=== PATIENT | female | born 1995 | race Caucasian/White ===

== ENCOUNTER 2018-10-27 08:26 | Emergency (ER) | payer SELFPAY ==
[~2018-10-27] VITALS: Ht 154.9 cm; Wt 68.5 kg
[~2018-10-27 08:26] MED LIST: AMOX500C25; VIC PO; [UNRECOGNIZED DRUG - CODE]
[2018-10-27 08:37] VITALS: BP 135/81
--- NOTE | 2018-10-27 08:40 | NUR ---
23 Y/O F W/ c/o of all over severe body pain x 2 days. pt reports hx of fibromyalgia. has not seen neurologist. taking over the counter medications at home for pain with no relief. pain 06/07. PT AMBULATORY WITH STEADY GAIT. +CMS. CAP REFILL <3. hx: fibromyalgia rx: OTC
--- NOTE | 2018-10-27 08:49 | NUR ---
PT PROVIDED URINE AT THIS TIME.
--- NOTE | 2018-10-27 10:30 | NUR ---
PT RESTING IN BED COMFORTABLY. NO S/S OF DISTRESS NOTED.
[2018-10-27] MEDS ORDERED: MORPHINE SULFATE 4 MG/ML SYR IM ONE (10:35)
[2018-10-27 11:18] VITALS: BP 125/72
== END 2018-10-27 11:19 | disposition home or self-care (01) ==
LOC: MED 08:26
DX: O26.891 Other specified pregnancy related conditions, first trimester (principal); M79.7 Fibromyalgia; Z3A.01 Less than 8 weeks gestation of pregnancy; Z88.0 Allergy status to penicillin; Z88.6 Allergy status to analgesic agent; Z79.2 Long term (current) use of antibiotics
CPT/HCPCS: 81002; 81025; 87804; 96372; 99283; J2270; 36415

== ENCOUNTER 2018-11-11 11:59 | Emergency (ER) | payer MEDICAID ==
[~2018-11-11] VITALS: Ht 154.9 cm; Wt 68.0 kg
[2018-11-11 12:03] VITALS: BP 140/97
--- NOTE | 2018-11-11 12:08 | NUR ---
PATIENT AMBULATED TO ER BED 4.
--- NOTE | 2018-11-11 12:15 | NUR ---
PT IS A 23 Y/O FEMALE WHO PRESENTS TO THE ED C/O VAGINAL BLEEDING. PT STATES THAT IT HAS BEEN GOING ON X1 WEEK, REPORTS BLEEDING WITH CLOTS. PT DOES NOT RECALL LMP AND IS UNSURE OF HOW MANY WEEKS , [id number]. PT REPORTS 10/10 ACHING VAGINAL PAIN. PT DENIES CP, SOB, REPORTS NAUSEA DENIES VOMITING/DIARRHEA. PT AWAKE AND ALERT, RR EVEN/UNLABORED. PT REPOSITIONED FOR COMFORT, BED IN LOWEST POSITION. ER MD DR. EGAN NOTIFIED. WILL CONTINUE TO MONITOR. PMH: FIBROMYALGIA RX: AMOXICILLIN, TRAMADOL
--- NOTE | 2018-11-11 13:10 | NUR ---
LAB AT BEDSIDE FOR INTERVENTION.
--- NOTE | 2018-11-11 13:15 | NUR ---
US AT BEDSIDE FOR INTERVENTION.
[2018-11-11 13:21] LABS: BASOPHILS % (AUTO) 0.1 % (0.0-2.0); EOSINOPHILS % (AUTO) 0.4 % (0.0-4.0); HEMATOCRIT 37.1 % (36-48); HEMOGLOBIN 12.5 g/dL (12.0-16.0); LYMPHOCYTES # (AUTO) 0.9 K/uL (2.5-16.5); LYMPHOCYTES % (AUTO) 17.5 % (20.5-51.1); MEAN CORPUSCULAR HEMOGLOBIN 31 pg (27-31); MEAN CORPUSCULAR HGB CONC 34 g/dL (33-37); MEAN CORPUSCULAR VOLUME 93.4 fL (80-94); MONOCYTES # (AUTO) 0.4 K/uL (0.8-1.0); MONOCYTES % (AUTO) 6.7 % (1.7-9.3); NEUTROPHILS # (AUTO) 4.1 K/uL (1.8-7.7); NEUTROPHILS % (AUTO) 75.3 % (42.2-75.2); PLATELET COUNT (AUTO) 230 K/uL (140-450); RED BLOOD CELL COUNT(AUTO) 3.98 MIL/uL (4.20-5.40); RED CELL DISTRIBUTION WIDTH 13.2 % (11.6-13.7); WHITE BLOOD COUNT (AUTO) 5.4 K/uL (4.8-10.8)
[2018-11-11 13:27] LABS: APPEARANCE,URINE CLEAR (CLEAR); BILIRUBIN,URINE NEGATIVE (NEGATIVE); BLOOD, URINE NEGATIVE (NEGATIVE); COLOR,URINE YELLOW (YELLOW); LEUKOCYTE ESTERASE ,URINE NEGATIVE (NEGATIVE); NITRITE, URINE NEGATIVE (NEGATIVE); UGLUCOSE NEGATIVE (NEGATIVE)
[2018-11-11 14:05] VITALS: BP 137/85
--- NOTE | 2018-11-11 14:05 | NUR ---
Patient discharged with v/s stable. Written and verbal after care instructions given and explained. Patient verbalized understanding. Ambulatory with steady gait. All questions addressed prior to discharge. Advised to follow up with PMD.
[2018-11-11 14:10] LABS: ANION GAP 14.9 (8-16); CARBON DIOXIDE 23.3 mmol/L (21-32); CREATININE 0.6 mg/dL (0.6-1.3); POTASSIUM 4.2 mmol/L (3.5-5.1)
== END 2018-11-11 14:05 | disposition home or self-care (01) ==
LOC: MED 11:59
DX: O20.0 Threatened abortion (principal); Z3A.10 10 weeks gestation of pregnancy; Z88.1 Allergy status to other antibiotic agents; Z88.5 Allergy status to narcotic agent; Z79.899 Other long term (current) drug therapy
CPT/HCPCS: 36415; 76801; 80048; 81003; 81025; 84702; 85025; 86900; 86901; 99284; Q0092

== ENCOUNTER 2018-11-15 16:32 | Emergency (ER) | payer MEDICAID ==
[~2018-11-15] VITALS: Ht 154.9 cm; Wt 69.9 kg
[2018-11-15 16:35] VITALS: BP 124/90
--- NOTE | 2018-11-15 17:59 | NUR ---
Reji trammell in [facility] - 11/15/18 at 1800 by [facility] PT AMBULATED TO BED 02.
--- NOTE | 2018-11-15 18:00 | NUR ---
PT AMBULATED TO BED 11.
--- NOTE | 2018-11-15 18:18 | NUR ---
THIS 9 WEEKS 6 DAYS WOMAN PRESENTED TO THE ED WITH THE CHIEF C/O BLEEDINGFOR TWO WEEKS. PT STATES SHE HAS SMALL BLOOD CLOT ON BLEEDING. PER PT SHE WAS HERE LAST TUESDAY FOR SAME REASON. PT WAS TOLD SHE IS HAVING MISCARRIAGE. PER PT, THIS IS HER 4TH MISCARRIAGE. NOT TAKING ANY MEDICINE CURRENTLY. STATES PAIN OF 9/10. DENIES ANY N/V/D AT THIS TIME. VSS.
--- NOTE | 2018-11-15 19:13 | NUR ---
REPORT GIVEN TO DEPUTY [place] RN.
--- NOTE | 2018-11-15 19:14 | NUR ---
RECIVED REPORT FROM JOE DOMINGUEZ.
[2018-11-15] MEDS ORDERED: KETOROLAC 30 MG/ML VIAL IVP ONE (19:35)
[2018-11-15] MEDS ORDERED: NACL 0.9% 1,000 ML IV ONE (19:35)
[2018-11-15] MEDS ORDERED: ONDANSETRON 4 MG/2 ML VIAL IVP ONE (19:55)
[2018-11-15 20:26] LABS: BASOPHILS % (AUTO) 0.3 % (0.0-2.0); EOSINOPHILS % (AUTO) 0.1 % (0.0-4.0); HEMOGLOBIN 14.3 g/dL (12.0-16.0); LYMPHOCYTES # (AUTO) 1.1 K/uL (2.5-16.5); LYMPHOCYTES % (AUTO) 10.1 % (20.5-51.1); MEAN CORPUSCULAR HEMOGLOBIN 32 pg (27-31); MEAN CORPUSCULAR HGB CONC 34 g/dL (33-37); MONOCYTES # (AUTO) 0.5 K/uL (0.8-1.0); MONOCYTES % (AUTO) 4.6 % (1.7-9.3); NEUTROPHILS # (AUTO) 9.5 K/uL (1.8-7.7); NEUTROPHILS % (AUTO) 84.9 % (42.2-75.2); PLATELET COUNT (AUTO) 295 K/uL (140-450); RED BLOOD CELL COUNT(AUTO) 4.52 MIL/uL (4.20-5.40); RED CELL DISTRIBUTION WIDTH 13.8 % (11.6-13.7); WHITE BLOOD COUNT (AUTO) 11.2 K/uL (4.8-10.8)
[2018-11-15] MEDS ORDERED: MORPHINE SULFATE 4 MG/ML SYR IVP ONE (20:50)
--- NOTE | 2018-11-15 21:30 | NUR ---
Patient appears to be resting comfortably in bed. Vital Signs within normal limits. Respirations even and unlabored. Pain level managed. Positioned for comfort, HOB elevated, side rail up x 1.
[2018-11-15 21:39] LABS: APPEARANCE,URINE CLEAR (CLEAR); BILIRUBIN,URINE NEGATIVE (NEGATIVE); BLOOD, URINE NEGATIVE (NEGATIVE); COLOR,URINE YELLOW (YELLOW); LEUKOCYTE ESTERASE ,URINE NEGATIVE (NEGATIVE); NITRITE, URINE NEGATIVE (NEGATIVE); UGLUCOSE NEGATIVE (NEGATIVE)
[2018-11-15] MEDS ORDERED: HYDROcodone/APAP 5/325 MG 1 TAB TAB PO ONE (22:25)
[2018-11-15 22:43] VITALS: BP 100/70
--- NOTE | 2018-11-15 22:43 | NUR ---
Patient discharged with v/s stable. Written and verbal after care instructions given and explained. Patient alert, oriented and verbalized understanding of instructions. Ambulatory with steady gait. All questions addressed prior to discharge. ID band removed. Patient advised to follow up with PMD. Rx of [place], Naprosyn, Zofran given. Patient educated on indication of medication including possible reaction and side effects. Opportunity to ask questions provided and answered.
== END 2018-11-15 22:43 | disposition home or self-care (01) ==
LOC: MED 16:32
DX: O03.9 Complete or unspecified spontaneous abortion without complication (principal); O26.891 Other specified pregnancy related conditions, first trimester; M79.7 Fibromyalgia; Z3A.10 10 weeks gestation of pregnancy; Z79.2 Long term (current) use of antibiotics; Z79.899 Other long term (current) drug therapy; Z90.89 Acquired absence of other organs
CPT/HCPCS: 36415; 76801; 81003; 84702; 85025; 96374; 96375; 99284; J1885; J2270; J2405; J7030; Q0092

== ENCOUNTER 2018-11-21 11:25 | Emergency (ER) | payer MEDICAID ==
[~2018-11-21] VITALS: Ht 154.9 cm; Wt 68.0 kg
[2018-11-21 11:42] VITALS: BP 129/95
--- NOTE | 2018-11-21 11:42 | NUR ---
TRIAGE. VSS . WAIT AT LOBBY FOR BED AVAILABLE.
--- NOTE | 2018-11-21 12:36 | NUR ---
PT TO ER BED 8
--- NOTE | 2018-11-21 12:48 | NUR ---
C/O LOWER ABDINAL PAIN & BLEEDING PER VAGINA S/P MISCARRING X 1MONTH . BURNING URINATION X LAST NIGHT. LMP 08/20/18 . DENIES N/V/D; SKIN IS PINK/WARM/DRY; AAOX4 WITH EVEN AND STEADY GAIT; LUNGS CLEAR BL; HR EVEN AND REGULAR; PT DENIES ANY FEVER, CP, SOB, OR COUGH AT THIS TIME; PATIENT STATES PAIN OF 8/10 AT THIS TIME; VSS; PATIENT POSITIONED FOR COMFORT; HOB ELEVATED; BEDRAILS UP X2; BED DOWN. ER MD MADE AWARE OF PT STATUS.
--- NOTE | 2018-11-21 13:14 | NUR ---
REPORT RECEIVED FROM JOE MCCORMACK.
--- NOTE | 2018-11-21 13:47 | NUR ---
US AT BEDSIDE.
[2018-11-21 14:14] LABS: BASOPHILS % (AUTO) 0.1 % (0.0-2.0); EOSINOPHILS % (AUTO) 0.2 % (0.0-4.0); HEMATOCRIT 39.2 % (36-48); HEMOGLOBIN 13.2 g/dL (12.0-16.0); LYMPHOCYTES # (AUTO) 0.9 K/uL (2.5-16.5); LYMPHOCYTES % (AUTO) 13.2 % (20.5-51.1); MEAN CORPUSCULAR HEMOGLOBIN 32 pg (27-31); MEAN CORPUSCULAR HGB CONC 34 g/dL (33-37); MEAN CORPUSCULAR VOLUME 93.6 fL (80-94); MONOCYTES # (AUTO) 0.3 K/uL (0.8-1.0); MONOCYTES % (AUTO) 4.4 % (1.7-9.3); NEUTROPHILS # (AUTO) 5.7 K/uL (1.8-7.7); NEUTROPHILS % (AUTO) 82.1 % (42.2-75.2); PLATELET COUNT (AUTO) 274 K/uL (140-450); RED BLOOD CELL COUNT(AUTO) 4.19 MIL/uL (4.20-5.40); RED CELL DISTRIBUTION WIDTH 13.5 % (11.6-13.7)
[2018-11-21 14:14] LABS: APPEARANCE,URINE CLEAR (CLEAR); BILIRUBIN,URINE NEGATIVE (NEGATIVE); BLOOD, URINE TRACE-L (NEGATIVE); COLOR,URINE YELLOW (YELLOW); LEUKOCYTE ESTERASE ,URINE NEGATIVE (NEGATIVE); NITRITE, URINE NEGATIVE (NEGATIVE); UGLUCOSE NEGATIVE (NEGATIVE)
[2018-11-21 14:16] LABS: RBC,URINE 0-5 /HPF (0-5); WBC,URINE NONE SEEN /HPF (0-5)
[2018-11-21] MEDS ORDERED: oxyCODONE/APAP 5/325 MG 1 TAB TAB PO ONE (14:20)
[2018-11-21] MEDS ORDERED: ONDANSETRON 4 MG ODT PO ONE (14:20)
[2018-11-21 14:42] LABS: ANION GAP 16.1 (8-16); CARBON DIOXIDE 24.1 mmol/L (21-32); CREATININE 0.7 mg/dL (0.6-1.3); POTASSIUM 4.2 mmol/L (3.5-5.1); TOTAL BILIRUBIN 0.3 mg/dL (0.0-1.0)
[2018-11-21 16:56] VITALS: BP 122/81
--- NOTE | 2018-11-21 16:56 | NUR ---
Patient discharged with v/s stable. Written and verbal after care instructions given and explained. Patient alert, oriented and verbalized understanding of instructions. Ambulatory with steady gait. All questions addressed prior to discharge. ID band removed. Patient advised to follow up with PMD. Rx of Zofran, Ibuprofen, and Percocet given. Patient educated on indication of medication including possible reaction and side effects. Opportunity to ask questions provided and answered. Patient recommended to f/u with [facility] and go to [place] for OB consult if s/s worsen.
== END 2018-11-21 16:56 | disposition home or self-care (01) ==
LOC: MED 11:25
DX: O03.9 Complete or unspecified spontaneous abortion without complication (principal); M79.7 Fibromyalgia; Z3A.10 10 weeks gestation of pregnancy; Z79.2 Long term (current) use of antibiotics; Z79.891 Long term (current) use of opiate analgesic; Z88.1 Allergy status to other antibiotic agents; Z88.5 Allergy status to narcotic agent
CPT/HCPCS: 36415; 76801; 80053; 81001; 81025; 84702; 85025; 99284; Q0092; Q0162

== ENCOUNTER 2020-09-09 14:58 | Emergency (ER) | payer SELFPAY ==
[~2020-09-09] VITALS: Ht 154.9 cm; Wt 70.3 kg
[2020-09-09 15:28] VITALS: BP 129/80
--- NOTE | 2020-09-09 15:31 | NUR ---
C/O LOWER ABDOMINAL PAIN .TOOK TEST AT HOME: POSITIVE.
[2020-09-09 16:44] VITALS: BP 129/80
--- NOTE | 2020-09-09 16:45 | NUR ---
Patient discharged with v/s stable. Written and verbal after care instructions given and explained. Patient alert, oriented and verbalized understanding of instructions. Ambulatory with steady gait. All questions addressed prior to discharge. ID band removed. Patient advised to follow up with PMD. Rx of Acetaminophen 500mg, plus, Nitrofuratoin 100mg given. Patient educated on indication of medication including possible reaction and side effects. Opportunity to ask questions provided and answered.
== END 2020-09-09 16:45 | disposition home or self-care (01) ==
LOC: MED 14:58
DX: O23.40 Unspecified infection of urinary tract in pregnancy, unspecified trimester (principal); Z34.90 Encounter for supervision of normal pregnancy, unspecified, unspecified trimester; Z88.1 Allergy status to other antibiotic agents; Z88.5 Allergy status to narcotic agent; Z79.899 Other long term (current) drug therapy
CPT/HCPCS: 81002; 81025; 87086; 99283

== ENCOUNTER 2020-10-08 14:00 | Inpatient (IN) | payer MEDICAID, SELFPAY ==
[~2020-10-08] VITALS: Ht 154.9 cm; Wt 72.6 kg
[2020-10-08 15:04] LABS: BASOPHILS % (AUTO) 0.5 % (0.0-2.0); EOSINOPHILS % (AUTO) 0.7 % (0.0-4.0); HEMATOCRIT 29.4 % (36-48); HEMOGLOBIN 9.8 g/dL (12.0-16.0); LYMPHOCYTES # (AUTO) 2.1 K/uL (2.5-16.5); LYMPHOCYTES % (AUTO) 33.9 % (20.5-51.1); MEAN CORPUSCULAR HEMOGLOBIN 30 pg (27-31); MEAN CORPUSCULAR HGB CONC 33 g/dL (33-37); MEAN CORPUSCULAR VOLUME 89.8 fL (80-94); MONOCYTES # (AUTO) 0.6 K/uL (0.8-1.0); MONOCYTES % (AUTO) 10.5 % (1.7-9.3); NEUTROPHILS # (AUTO) 3.3 K/uL (1.8-7.7); NEUTROPHILS % (AUTO) 54.4 % (42.2-75.2); PLATELET COUNT (AUTO) 197 K/uL (140-450); RED BLOOD CELL COUNT(AUTO) 3.28 MIL/uL (4.20-5.40); WHITE BLOOD COUNT (AUTO) 6.1 K/uL (4.8-10.8)
[2020-10-08 15:18] LABS: ALBUMIN 2.7 g/dL (3.4-5.0); ANION GAP 13.1 (8-16); CARBON DIOXIDE 22.6 mmol/L (21-32); CREATININE 0.9 mg/dL (0.6-1.3); POTASSIUM 3.7 mmol/L (3.5-5.1); TOTAL BILIRUBIN 0.2 mg/dL (0.0-1.0)
[2020-10-08] MEDS ORDERED: MAG SULF 2000 MG/WATER PREMIX 100 ML IV ONE (15:35)
[2020-10-08 16:12] LABS: APPEARANCE,URINE CLEAR (CLEAR); BILIRUBIN,URINE NEGATIVE (NEGATIVE); BLOOD, URINE 1+ (NEGATIVE); COLOR,URINE YELLOW (YELLOW); LEUKOCYTE ESTERASE ,URINE NEGATIVE (NEGATIVE); NITRITE, URINE NEGATIVE (NEGATIVE); UGLUCOSE NEGATIVE (NEGATIVE)
[2020-10-08 16:20] LABS: PROTHROMBIN TIME 9.6 secs (10.8-13.4)
[2020-10-08 16:24] LABS: URIC ACID 7.6 mg/dL (2.6-7.2)
[2020-10-08] MEDS: BETAMETH ACET/BETAMETH NA PH 30 MG/5 ML VIAL IM SCH (16:54)
[2020-10-08] MEDS ORDERED: LACTATED RINGERS 1,000 ML IV SCH (17:00)
[2020-10-08 17:27] LABS: URINE TOTAL PROTEIN 0.2 mg/dL (0-12)
[2020-10-08 17:37] LABS: RBC,URINE 11-20 (MOD) /HPF (0-5); WBC,URINE 0-5 /HPF (0-5)
[2020-10-08] MEDS: MAG SULF 20 GM/H2O PREMIX DRIP 500 ML IV SCH (18:06)
[2020-10-08] MEDS ORDERED: PANTOPRAZOLE 40 MG TABEC PO SCH (19:10)
[2020-10-08] MEDS ORDERED: LABETALOL 100 MG TAB PO SCH (21:00)
[2020-10-09] MEDS ORDERED: OXYTOCIN 20 UNITS in LACTATED RINGERS 1,000 ML IV PRN (05:55)
[2020-10-09] MEDS ORDERED: CARBOPROST 250 MCG/ML AMP IM ONE ×2 (05:55→22:12)
[2020-10-09] MEDS ORDERED: BUPIVACAINE 0.125%/NS PREMIX 250 ML EPI SCH (06:25)
[2020-10-09] MEDS ORDERED: ROPIVACAINE 0.2%/NS PREMIX 200 ML EPI ONE (07:09)
[2020-10-09 09:01] LABS: BARBITURATE, URINE NEGATIVE ng/ml (NEG <=200); BENZODIAZEPINE, URINE NEGATIVE ng/mL (NEG <=200); CANNABINOID, URINE POSITIVE ng/mL (NEG <=50); COCAINE, URINE NEGATIVE ng/mL (NEG <=300); OPIATE, URINE POSITIVE ng/mL (NEG <=2000); PHENCYCLIDINE SCREEN,URINE NEGATIVE ng/mL (NEG <=25)
[2020-10-09] MEDS: MAG SULF 20 GM/H2O PREMIX DRIP 500 ML IV SCH ×2 (09:04→16:38)
--- NOTE | 2020-10-09 09:16 | NUR ---
PATIENT HAS BEEN SCREENED AND CATEGORIZED LOW NUTRITION RISK. PATIENT WILL BE SEEN WITHIN 7 DAYS OF ADMISSION. 10/15/[address]
[2020-10-09] MEDS ORDERED: ONDANSETRON 4 MG/2 ML VIAL IVP PRN (12:05)
[2020-10-09] MEDS ORDERED: ONDANSETRON 4 MG/2 ML VIAL ONE (12:09)
[2020-10-09] MEDS: BETAMETH ACET/BETAMETH NA PH 30 MG/5 ML VIAL IM SCH (16:45)
[2020-10-09] MEDS ORDERED: OXYTOCIN 20 UNITS in LACTATED RINGERS 1,000 ML IV SCH (17:10)
[2020-10-09] MEDS ORDERED: OXYTOCIN 20 UNITS/LR PREMIX 1,000 ML IV ONE ×2 (17:30→22:34)
[2020-10-09] MEDS ORDERED: MISOPROSTOL 25 MCG TAB ONE (21:52)
[2020-10-09] MEDS ORDERED: MISOPROSTOL 25 MCG TAB RC ONE ×2 (21:55→22:05)
[2020-10-09] MEDS ORDERED: MISOPROSTOL 200 MCG TAB ONE (21:58)
[2020-10-09] MEDS ORDERED: IBUPROFEN 800 MG TAB PO PRN (22:45)
[2020-10-09] MEDS ORDERED: MEASLES, MUMPS, AND RUBELLA 1 VIAL SQVAC PRN (22:45)
[2020-10-09] MEDS ORDERED: OXYTOCIN 10 UNITS/ML VIAL IM PRN (22:45)
[2020-10-09] MEDS ORDERED: METHYLERGONOVINE 0.2 MG TAB PO PRN (22:45)
[2020-10-09] MEDS ORDERED: DOCUSATE SODIUM 100 MG GELCAP PO PRN (22:45)
[2020-10-09] MEDS ORDERED: IBUPROFEN 600 MG TAB PO PRN (22:45)
[2020-10-09] MEDS ORDERED: BENZOCAINE/MENTHOL 20%-0.5% 60 GM CAN TP PRN (22:45)
[2020-10-09] MEDS ORDERED: SIMETHICONE 80 MG TAB.CHEW PO PRN (22:45)
[2020-10-09] MEDS ORDERED: METHYLERGONOVINE 0.2 MG/ML AMP IM PRN (22:45)
[2020-10-09] MEDS ORDERED: bisacodyL 5 MG TABEC PO PRN (22:45)
[2020-10-09] MEDS ORDERED: MISOPROSTOL 100 MCG TAB RC SCH (22:50)
[2020-10-09] MEDS ORDERED: CARBOPROST 250 MCG/ML AMP IM SCH (22:50)
[2020-10-09] MEDS ORDERED: oxyCODONE/APAP 5/325 MG 1 TAB TAB PO PRN (22:50)
[2020-10-09] MEDS ORDERED: oxyCODONE/APAP 5/325 MG 1 TAB TAB ONE (23:29)
[2020-10-10 01:28] LABS: HEMATOCRIT 25.8 % (36-48); HEMOGLOBIN 8.4 g/dL (12.0-16.0); MEAN CORPUSCULAR HEMOGLOBIN 29 pg (27-31); MEAN CORPUSCULAR HGB CONC 33 g/dL (33-37); MEAN CORPUSCULAR VOLUME 90.4 fL (80-94); PLATELET COUNT (AUTO) 254 K/uL (140-450); RED BLOOD CELL COUNT(AUTO) 2.86 MIL/uL (4.20-5.40); RED CELL DISTRIBUTION WIDTH 12.9 % (11.6-13.7); WHITE BLOOD COUNT (AUTO) 24.4 K/uL (4.8-10.8)
[2020-10-10 02:25] LABS: LYMPHOCYTES % (MANUAL) 5 % (20-46); MONOCYTES % (MANUAL) 5 % (5-12)
[2020-10-10] MEDS ORDERED: MISOPROSTOL 100 MCG TAB RC PRN (07:05)
[2020-10-10] MEDS ORDERED: CARBOPROST 250 MCG/ML AMP IM ONE (07:05)
[2020-10-10 08:22] LABS: HEMATOCRIT 22.6 % (36-48); HEMOGLOBIN 7.5 g/dL (12.0-16.0)
[2020-10-10 15:11] LABS: HEMATOCRIT 20.8 % (36-48)
[2020-10-10 15:13] LABS: HEMOGLOBIN 6.8 g/dL (12.0-16.0)
[2020-10-10] MEDS ORDERED: diphenhydrAMINE 50 MG/ML VIAL IVP ONE (15:25)
[2020-10-10] MEDS ORDERED: ACETAMINOPHEN EXTRA STRENGTH 500 MG TAB ONE (15:48)
[2020-10-10] MEDS ORDERED: NACL 0.9% 1,000 ML IV SCH (15:55)
[2020-10-10] MEDS ORDERED: ACETAMINOPHEN EXTRA STRENGTH 500 MG TAB PO ONE (16:30)
[2020-10-11 06:28] LABS: HEMATOCRIT 23.4 % (36-48); HEMOGLOBIN 7.6 g/dL (12.0-16.0)
== END 2020-10-11 15:55 | disposition home or self-care (01) | DRG 560 ==
LOC: MLD 14:00 → OBSVTOIN 18:45 → MFCC 10-10 08:55
PROVIDERS: ADMIT Obstetrics & Gynecology; ATTEND Obstetrics & Gynecology
PROC: 10E0XZZ Delivery of Products of Conception, External Approach (ICD-10-PCS; principal; 2020-10-09)
PROC: 3E0R3BZ Introduction of Anesthetic Agent into Spinal Canal, Percutaneous Approach (ICD-10-PCS; 2020-10-09)
PROC: 00HU33Z Insertion of Infusion Device into Spinal Canal, Percutaneous Approach (ICD-10-PCS; 2020-10-09)
PROC: 3E0234Z Introduction of Serum, Toxoid and Vaccine into Muscle, Percutaneous Approach (ICD-10-PCS; 2020-10-09)
PROC: 3E0134Z Introduction of Serum, Toxoid and Vaccine into Subcutaneous Tissue, Percutaneous Approach (ICD-10-PCS; 2020-10-09)
PROC: 30233N1 Transfusion of Nonautologous Red Blood Cells into Peripheral Vein, Percutaneous Approach (ICD-10-PCS; 2020-10-10)
DX: O42.913 Preterm premature rupture of membranes, unspecified as to length of time between rupture and onset of labor, third trimester (principal); O13.4 Gestational [pregnancy-induced] hypertension without significant proteinuria, complicating childbirth; O60.14X0 Preterm labor third trimester with preterm delivery third trimester, not applicable or unspecified; O99.324 Drug use complicating childbirth; F12.90 Cannabis use, unspecified, uncomplicated; F11.90 Opioid use, unspecified, uncomplicated; O72.1 Other immediate postpartum hemorrhage; D62 Acute posthemorrhagic anemia; O99.02 Anemia complicating childbirth; Z3A.36 36 weeks gestation of pregnancy; Z37.0 Single live birth; Z20.822 Contact with and (suspected) exposure to COVID-19; Z23 Encounter for immunization
CPT/HCPCS: 36415; 76805; 80053; 80305; 81001; 82570; 83735; 84550; 85018; 85025; 85384; 85610; 85730; 86592; 86886; 86900; 86901; 86920; G0378; J0702; J2405; J2590; J2795; J3475; J3490; J7120; P9016; Q0163